=== PATIENT | female | born 2000 | race American Indian/Alaskan Native ===

== ENCOUNTER 2019-08-21 07:30 | Inpatient (IN) | payer MEDICAID, OTHER ==
--- NOTE | 2019-08-21 07:39 | History and Physical Report ---
History of Present Illness Date of examination: 08/21/19 Date of admission: 08/21/19 07:30 Chief complaint: Repeat C Section History of present illness: Pt is a 18yo BF EDC 08/25/19; EGA 39 3/7 weeks presents for a Repeat C Section. She received late care at [facility] since 32 weeks and co-managed by [facility] for history of labor, delivery and late care. records are available but GBS is unknown. Past History Past Medical History: no pertinent history Past Surgical History: section DRIVER WHEELCHAIR History: trichomonas Family/Genetic History: none Social history: no significant social history, single - Obstetrical History Expected Date of Delivery: 08/25/19 Actual Gestation: 39 Week(s) 3 Day(s) Medications and Allergies Allergies Allergy/AdvReac Type Severity Reaction Status Date / Time No Known Allergies Allergy Verified 08/21/19 08:08 Home Medications Medication Instructions Recorded Confirmed Last Taken Type No Known Home Medications [No 08/21/19 08/21/19 Unknown History Reported Home Medications] Active Meds: Active Medications Citric Acid/Sodium Citrate (Bicitra) 30 ml PO ONCE ONE Stop: 08/21/19 07:34 Famotidine (Pepcid) 20 mg IV ONCE ONE Stop: 08/21/19 07:34 Oxytocin/Sodium Chloride (Pitocin/Ns 20 Unit/1000ml Drip) 20 units in 1,000 mls @ 0 mls/hr IV TITR JAKE Lactated Ringer's (Lactated Ringers) 1,000 mls @ 2,250 mls/hr IV PREOP JAKE Stop: 08/22/19 08:27 Cefazolin Sodium (Ancef/Sterile Water 2 Gm/20 Ml) 2 gm in 20 mls @ 80 mls/hr IV PREOP NR; Protocol Metoclopramide HCl (Reglan) 10 mg IV ONCE ONE Stop: 08/21/19 07:34 Review of Systems All systems: negative - Physical Exam Breasts: Positive: deferred Cardiovascular: Regular rate Lungs: Positive: Clear to auscultation Abdomen: Positive: normal appearance Genitourinary (Female): Positive: normal external genitalia Uterus: Positive: enlarged Extremities: Positive: normal - Obstetrical FHR: category 1 Uterine Contraction Monitor Mode: External Results Result Diagrams: 08/21/19 07:50 All other labs normal. Assessment and Plan - Patient Problems (1) 39 weeks gestation of Onset Date: 08/21/19 Current Visit: Yes Status: Acute Plan to address problem: A: IUP @ 39 3/7 weeks Previous C Section P: Admit to L&D for a Repeat C Section (2) Previous section complicating Onset Date: 08/21/19 Current Visit: Yes Status: Chronic
[2019-08-21] MEDS ORDERED: OXYTOCIN 20 UNIT/1000ML DRIP 20 UNITS/1,000 ML BAG IV SCH ×2 (08:00→13:00)
[2019-08-21] MEDS ORDERED: LACTATED RINGERS 1,000 ML IV SCH (08:00)
[2019-08-21 08:11] LABS: Basophils % (Auto) 0.2 % (0.0-1.8); Eosinophils # (Auto) 0.1 K/mm3 (0.0-0.4); Eosinophils % (Auto) 0.6 % (0.0-4.3); Hematocrit 30.7 % (30.3-42.9); Lymphocytes # (Auto) 2.6 K/mm3 (1.2-5.4); Lymphocytes % (Auto) 30.2 % (13.4-35.0); Mean Corpuscular HGB Conc 33 % (30-34); Mean Corpuscular Volume 79 fl (79-97); Monocytes # (Auto) 0.7 K/mm3 (0.0-0.8); Monocytes % (Auto) 8.2 % (0.0-7.3); Platelet Count 188 K/mm3 (140-440); Red Blood Count 3.88 M/mm3 (3.65-5.03); Red Cell Distribution Width 15.9 % (13.2-15.2)
--- NOTE | 2019-08-21 08:20 | Anesthesia Day of Surgery ---
Anesthesia Day of Surgery - Day of Surgery Patient Examined: Yes Patient H&P Reviewed: Yes Patient is NPO: Yes Beta Blockers: No Cardiac Clearance: No Pulmonary Clearance: No Yakov's Test: N/A
[2019-08-21] MEDS ORDERED: HYDROmorphone 1 MG/1 ML INJ IV PRN ×2 (08:22)
[2019-08-21] MEDS ORDERED: ONDANSETRON 4 MG/2 ML INJ IV PRN (08:22)
--- NOTE | 2019-08-21 08:22 | Anesthesia Consultation ---
Anesthesia Consult and Med Hx Date of service: 08/21/19 - Airway Anesthetic Teeth Evaluation: Poor, Chipped ROM Head & Neck: Adequate Mental/Hyoid Distance: Adequate Mallampati Class: Class II Intubation Access Assessment: Probably Good - Pulmonary Exam CTA: Yes - Cardiac Exam Cardiac Exam: RRR - Pre-Operative Health Status ASA Pre-Surgery Classification: ASA2 Proposed Anesthetic Plan: Spinal - Pre-Anesthesia Comment Pre-Anesthesia Comments: PMH: C/S NO ANESTHESIA COMPICATIONS - Pulmonary Hx Smoking: No Hx Asthma: No Hx Respiratory Symptoms: No SOB: No COPD: No Home Oxygen Therapy: No Hx Pneumonia: No Hx Sleep Apnea: No - Cardiovascular System Hx Hypertension: No Hx Coronary Artery Disease: No Hx Heart Attack/AMI: No Hx Angina: No Hx Percutaneous Transluminal Coronary Angioplasty (PTCA): No Hx Cardia Arrhythmia: No Hx Pacemaker: No Hx Internal Defibrillator: No Hx Valvular Heart Disease: No Hx Heart Murmur: No Hx Peripheral Vascular Disease: No - Central Nervous System Hx Neuromuscular Disorder: No Hx Seizures: No CVA: No Hx Back Pain: No Hx Psychiatric Problems: No - Gastrointestinal Hx Ulcer: No Hx Gastroesophageal Reflux Disease: No - Endocrine Hx Renal Disease: No Hx End Stage Renal Disease: No Hx Cirrhosis: No Hx Liver Disease: No Hx Insulin Dependent Diabetes: No Hx Non-Insulin Dependent Diabetes: No Hx Thyroid Disease: No Hx Hypothyroidism: No Hx Hyperthyroidism: No - Hematic Hx Anemia: No Hx Sickle Cell Disease: No - Other Systems Hx Alcohol Use: No Hx Substance Use: No Hx Cancer: No Hx Obesity: No
[2019-08-21] MEDS ORDERED: FAMOTIDINE 20 MG/2 ML INJ IV NR (08:30)
[2019-08-21] MEDS ORDERED: METOCLOPRAMIDE 10 MG/2 ML INJ IV NR (08:30)
[2019-08-21] MEDS ORDERED: ceFAZolin/Water 2 GM/20 ML 2 GM/20 ML SYRINGE IV NR (08:30)
[2019-08-21] MEDS ORDERED: BICITRA ORAL LIQD 30ML PO NR (08:30)
[2019-08-21] MEDS ORDERED: LACTATED RINGERS 1,000 ML ONE (11:26)
[2019-08-21] MEDS ORDERED: SODIUM CHLORIDE 0.9% IRR 1,500 ML BOTTLE IR ONE (11:56)
[2019-08-21] MEDS ORDERED: WATER FOR IRRIG STERILE 1,500 ML BOTTLE IR ONE (11:56)
[2019-08-21] MEDS ORDERED: KETAMINE/STERILE WATER 50 MG/ML SYRINGE ONE (11:57)
[2019-08-21] MEDS ORDERED: MIDAZOLAM 2 MG/2 ML INJ ONE (11:59)
[2019-08-21] MEDS ORDERED: OXYTOCIN 10 UNIT/1 ML INJ ONE (12:01)
--- NOTE | 2019-08-21 12:26 | Operative Report ---
Operative Report Operative Report: Date of procedure: 08/21/2019 Pre-operative diagnosis: 1. Intrauterine at 39 3/7 weeks 2. Previ ous C Section Post-operative diagnosis: same with lower uterine segment window and adhesions Procedure name(s): Repeat low transverse section Surgeon: Ar Walters MD Grocery Clerk Marking: None Anesthesia: Spinal anesthesia by Adalgisa Schumacher CRNA EBL: 400 mL's Findings: A 3294 gm male infant Apgars 8 at 1 minute 9 at 5 minutes. Clear amniotic fluid. Normal uterus with lower uterine segment window and adhesions. Normal tubes and ovaries bilaterally. Procedure: After the patient was prepped and draped in usual sterile fashion, and after satisfactory level of spinal anesthesia was obtained, the skin knife was used to make a transverse skin incision through the previous skin scar. The incision was incised down to layer of the fascia, which was nicked in the midline and extended laterally using the Bovie cautery. The rectus muscles were dissected off the rectus fascia both superiorly and inferiorly. The rectus bellies in the midline, and the peritoneum was entered under direct visualization. The peritoneal incision was extended superiorly and inferiorly. Extensive lower uterine segment adhesions were taken down using both sharp and blunt dissections. A bladder flap was created and the bladder blade was then placed. There was a lower uterine segment window with amniotic membranes clearly visible. The uterus was scored in a curvilinear linear fashion, entered in the midline, and included the window, revealing clear amniotic fluid. The infant's head was delivered onto the surgical field and the oropharynx and nasopharynx were bulb suctioned. The rest of the infant's body was delivered, cord was doubly clamped and cut and the was handed to the awaiting respiratory team. The placenta was manually removed from the uterus, and the uterus removed from its normal anatomical position. After gentle uterine lavage, the incision was inspected and found to be without extensions. It was then closed in 2 layers using 0 Vicryl suture in a running interlocking fashion, the second layer imbricating the first. After good hemostasis was achieved, copious amounts or irrigation was performed, and the gutters were suctioned free of blood and blood clots. Next, the peritoneum was re-approximated using 3-0 Vicryl suture in a running interlocking fashion, and then the rectus muscles were loosely re- approximated using 3-0 Vicryl suture in a [id number] configuration. The fascia was then re-approximated using #1 Vicryl suture in running interlocking fashion. The subcutaneous layer was made hemostatic using Bovie cautery, and the skin edges re-approximated using 4-0 Vicryl suture in a sub-cuticular fashion. Patient tolerated the procedure well was transported to recovery in stable condition.
[2019-08-21] MEDS ORDERED: ACETAMINOPHEN 325 MG TAB PO PRN (12:28)
[2019-08-21] MEDS ORDERED: SENNOSIDES 8.6 MG TAB PO PRN (12:28)
[2019-08-21] MEDS ORDERED: NALOXONE 0.4 MG/1 ML INJ IV PRN (12:28)
[2019-08-21] MEDS ORDERED: LANOLIN/ZINC/DIMETHICONE (LANSINOH) 7 GM TP PRN (12:28)
[2019-08-21] MEDS ORDERED: SIMETHICONE 80 MG CHEW TAB PO PRN (12:28)
[2019-08-21] MEDS ORDERED: WITCH HAZEL/ GLYCERIN PAD TP PRN (12:28)
[2019-08-21] MEDS ORDERED: MAGNESIUM HYDROXIDE (MOM) ORAL LIQD UDC PO PRN (12:28)
[2019-08-21] MEDS ORDERED: HYDROcodone/ACETAMINOPHEN 5-325 MG TAB PO PRN (12:28)
[2019-08-21] MEDS ORDERED: HYDROmorphone 1 MG/1 ML INJ ONE ×2 (12:34→12:36)
--- NOTE | 2019-08-21 12:59 | Post Anesthesia Evaluation ---
- Post Anesthesia Evaluation Patient Participated: Yes Airway Patent: Yes Stable Respiratory Function: Yes Nausea/Vomiting: No Temp > 96.8F: Yes Pain Manageable: Yes Adequeate Hydration: Yes Anesthesia Complications: No Block Receding Appropriately: Yes Patient on Ventilator: No
[2019-08-21] MEDS ORDERED: D5W/LACTATED RINGERS 1,000 ML IV SCH (13:00)
[2019-08-21] MEDS: KETOROLAC 30 MG/1 ML INJ IV PRN ×2 (16:33→23:12)
[2019-08-21] MEDS: ceFAZolin/NS 1 GM/50 ML 1 GM/50 ML BAG IV SCH (22:10)
[2019-08-22 01:11] LABS: Hematocrit 26.6 % (30.3-42.9); Hemoglobin 8.6 gm/dl (10.1-14.3)
[2019-08-22] MEDS: oxyCODONE /ACETAMINOPHEN 5-325MG TAB PO PRN ×4 (02:33→21:51)
[2019-08-22] MEDS ORDERED: TETANUS,DIPH,PERTUSS(ACELL) VACCINE 0.5 ML SYRINGE IM ONE (06:00)
[2019-08-22] MEDS: IBUPROFEN 800 MG TAB PO PRN ×2 (06:09→19:56)
[2019-08-22] MEDS: ceFAZolin/NS 1 GM/50 ML 1 GM/50 ML BAG IV SCH (06:13)
[2019-08-22] MEDS: PRENATAL VIT27-FE FUMARATE-FOLIC ACID VIT TAB PO SCH (10:15)
[2019-08-22] MEDS: FERROUS SULFATE 325 MG TAB PO SCH (10:15)
--- NOTE | 2019-08-22 11:16 | Progress Note ---
Assessment and Plan - Patient Problems (1) 39 weeks gestation of Onset Date: 08/21/19 Current Visit: Yes Status: Resolved (2) Previous section complicating Onset Date: 08/21/19 Current Visit: Yes Status: Resolved (3) Status post Onset Date: 08/22/19 Current Visit: Yes Status: Resolved Plan to address problem: A: S/P Repeat C Section - POD #1 Doing well Asymptomatic anemia - stable P: Continue RPOC Anticipate discharge in 24-48hrs (4) Acute blood loss anemia Onset Date: 08/22/19 Current Visit: Yes Status: Resolved Subjective - Subjective Date of service: 08/22/19 Principal diagnosis: s/p Repeat C Section - POD #1 Interval history: Pt is feeling well without complaints. Bleeding improved. She is tolerating a liquid diet without nausea or vomiting. Patient reports: appetite normal, voiding normally, pain well controlled, flatus, ambulating normally, no dizzy ambulation, no nauseated : doing well, bottle feeding Objective - Vital Signs Latest vital signs: Vital Signs Temp Pulse Resp BP BP Pulse Ox 08/22/19 08:05 20 08/22/19 07:52 97.8 F 68 18 92/55 08/21/19 23:14 98.3 F 86 18 94/58 98 08/21/19 20:23 97.8 F 61 18 103/69 99 08/21/19 14:33 97.8 F 61 16 110/64 100 08/21/19 14:00 97.8 F 68 18 104/68 99 08/21/19 13:45 62 16 100/70 97 08/21/19 13:30 64 14 100/50 96 08/21/19 13:15 59 L 16 93/56 100 08/21/19 13:00 98.1 F 59 L 16 96/59 100 Intake and Output 08/21/19 08/22/19 08/22/19 22:59 06:59 14:59 Intake Total 650 480 480 Output Total 600 2400 Balance 50 -1920 480 Intake: IV 50 ANCEF/NS 1 GM/50 ML 1 gm 50 In 50 ml @ 100 mls/hr IV Q8H JAKE Rx#:[id number] Oral 600 240 480 Intake, Free Water 240 Output: Urine 600 2400 Indwelling Catheter 600 2300 Void 100 Other: Total, Intake Amount 120 240 480 Total, Output Amount 600 800 Estimated Blood Loss 400 - Exam Breasts: Present: deferred Abdomen: Present: normal appearance, soft Uterus: Present: normal, firm, fundal height below umbilicus Extremities: Present: normal Incision: Present: normal, dry, intact, dressed - Labs Labs: Abnormal lab results 08/22/19 Range/Units 00:37 Hgb 8.6 L (10.1-14.3) gm/dl Hct 26.6 L (30.3-42.9) % Laboratory Tests 08/21/19 08/21/19 08/22/19 07:50 07:50 00:37 WBC 8.5 RBC 3.88 Hgb 10.0 L 8.6 L Hct 30.7 26.6 L MCV 79 MCH 26 L MCHC 33 RDW 15.9 H Plt Count 188 Lymph % (Auto) 30.2 [place] % (Auto) 8.2 H Eos % (Auto) 0.6 Baso % (Auto) 0.2 Lymph # 2.6 [place] # 0.7 Eos # 0.1 Baso # 0.0 Seg Neutrophils % 60.8 Seg Neutrophils # 5.2 Blood Type AB POSITIVE Antibody Screen Negative
[2019-08-22] MEDS ORDERED: MEASLES, MUMPS & RUBELLA 12,500 UNIT/0.5 ML VACCINE SUB-Q ONE (12:29)
[2019-08-23] MEDS: oxyCODONE /ACETAMINOPHEN 5-325MG TAB PO PRN (05:32)
--- NOTE | 2019-08-23 08:44 | Progress Note ---
Assessment and Plan - Patient Problems (1) 39 weeks gestation of Onset Date: 08/21/19 Current Visit: Yes Status: Resolved (2) Previous section complicating Onset Date: 08/21/19 Current Visit: Yes Status: Resolved (3) Status post Onset Date: 08/22/19 Current Visit: Yes Status: Resolved Plan to address problem: A: S/P Repeat C Section - POD #2 Doing well Asymptomatic anemia - stable P: May go home today. (4) Acute blood loss anemia Onset Date: 08/22/19 Current Visit: Yes Status: Resolved Subjective - Subjective Date of service: 08/23/19 Principal diagnosis: s/p Repeat C Section - POD #2 Interval history: Pt is feeling well without complaints. She is tolerating a reg diet without nausea or vomiting, ambulating and voiding without difficulty. Patient reports: appetite normal, voiding normally, pain well controlled, flatus, ambulating normally, no dizzy ambulation, no nauseated [place]: doing well, bottle feeding Objective - Vital Signs Latest vital signs: Vital Signs Temp Pulse Resp BP BP Pulse Ox 08/23/19 05:32 20 08/23/19 00:54 97.7 F 77 18 97/65 100 08/22/19 21:51 20 08/22/19 19:56 20 08/22/19 16:23 97.8 F 81 18 112/76 08/22/19 15:00 20 Intake and Output 08/22/19 08/23/19 08/23/19 22:59 06:59 14:59 Intake Total 840 Balance 840 Intake: Oral 480 Intake, Free Water 360 Other: Total, Intake Amount 480 # Voids Void 2 - Exam Breasts: Present: deferred Abdomen: Present: normal appearance, soft Uterus: Present: normal, firm, fundal height below umbilicus Extremities: Present: normal Incision: Present: normal, dry, intact
--- NOTE | 2019-08-23 08:46 | Discharge Summary ---
Providers - Providers Date of Admission: 08/21/19 07:30 Date of discharge: 08/23/19 Attending physician: HUMPHREY ALDRIDGE Primary care physician: HUMPHREY ALDRIDGE Hospitalization Reason for admission: section, IUP at term Delivery: Procedure: section, repeat low transverse Episiotomy: none Laceration: none Incision: normal, dry, intact Other procedures: none complications: none Discharge diagnosis: IUP at term delivered [place] baby: male Hospital course: Pt is a 18yo BF EDC 08/25/19; EGA 39 3/ weeks who presented for a Repeat C Section. She received late care at [facility] since 32 weeks and co-managed by [facility] for history of labor, delivery and l ate care. She underwent an uncomplicated Repeat C Section, and by POD #2 she was tolerating a reg diet without nausea or vomiting, ambulating and voiding without difficulty. She was therefore discharged to home on POD #2 in stable condition. Condition at discharge: Good Disposition: DC-01 TO HOME OR SELFCARE - Discharge Diagnoses (1) 39 weeks gestation of Status: Resolved (2) Previous section complicating Status: Resolved (3) Status post Status: Resolved (4) Acute blood loss anemia Status: Resolved Plan - Discharge Medications Prescriptions: Ferrous Sulfate [Feosol 325 MG tab] 325 mg PO BID #60 tablet Ibuprofen [Motrin 800 MG tab] 800 mg PO Q6H PRN #30 tablet PRN Reason: Pain, Mild (1-3) oxyCODONE /ACETAMINOPHEN [Percocet 5/325 mg] 1 tab PO Q6H PRN #30 tablet PRN Reason: Pain, Moderate (4-6) Vit-Fe Fumar-FA [ Vitamin] 1 each PO QDAY #30 tablet - Provider Discharge Summary Activity: routine, no sex for 6 weeks, no heavy lifting 4 weeks, no strenuous exercise Diet: routine Instructions: routine Additional instructions: [] Smoking cessation referral if applicable(refer to patient education folder for contact #) [] Refer to [facility] Booklet Call your doctor immediately for: * Fever > 100.5 * Heavy vaginal bleeding ( >1 pad per hour) * Severe persistent headache * Shortness of breath * Reddened, hot, painful area to leg or breast * Drainage or odor from incision. * Keep incision clean and dry at all times and follow doctor's instructions regarding bathing/showering - Follow up plan Follow up: HUMPHREY ALDRIDGE MD [Primary Care Provider] - 14 Days LATOYA ARAGON NP [Referring] - 14 Days
[2019-08-23] MEDS: PRENATAL VIT27-FE FUMARATE-FOLIC ACID VIT TAB PO SCH (09:08)
[2019-08-23] MEDS: FERROUS SULFATE 325 MG TAB PO SCH (09:08)
[2019-08-23 10:47] VITALS: BP 116/74
[2019-08-23 15:25] LABS: Amphetamine Screen,Urine PRESUMPTIVE NEGATIVE; Benzodiazepines Screen,Urine PRESUMPTIVE NEGATIVE; Cocaine Screen,Urine PRESUMPTIVE NEGATIVE; Methadone Screen,Urine PRESUMPTIVE NEGATIVE; Opiate Screen,Urine PRESUMPTIVE NEGATIVE
[2019-08-23 15:37] LABS: Cannabinoid Screen,Urine PRESUMPTIVE POSITIVE
[2019-08-23] MEDS: IBUPROFEN 800 MG TAB PO PRN (15:39)
== END 2019-08-23 17:40 | disposition home or self-care (01) | DRG 765 ==
LOC: APU 07:30 → OB 14:29
PROVIDERS: ADMIT Obstetrics & Gynecology; ATTEND Obstetrics & Gynecology
PROC: 10D00Z1 Extraction of Products of Conception, Low, Open Approach (ICD-10-PCS; principal; 2019-08-21)
PROC: 3E0234Z Introduction of Serum, Toxoid and Vaccine into Muscle, Percutaneous Approach (ICD-10-PCS; 2019-08-22)
PROC: 3E0134Z Introduction of Serum, Toxoid and Vaccine into Subcutaneous Tissue, Percutaneous Approach (ICD-10-PCS; 2019-08-22)
DX: O34.211 Maternal care for low transverse scar from previous cesarean delivery (principal); D62 Acute posthemorrhagic anemia; N73.6 Female pelvic peritoneal adhesions (postinfective); O99.89 Other specified diseases and conditions complicating pregnancy, childbirth and the puerperium; O90.81 Anemia of the puerperium; Z3A.39 39 weeks gestation of pregnancy; Z37.0 Single live birth
CPT/HCPCS: 36415; 80307; 85014; 85018; 85025; 86850; 86900; 86901; G0378; J0690; J1170; J1885; J2250; J2590; J2765; J7120; J7121